=== PATIENT | male | born 1995 | race Hispanic/Latino ===

== ENCOUNTER → 2019-12-07 08:18 | Outpatient (CLI) | payer BC, SELFPAY ==
[2019-12-07 09:07] LABS: Influenza A - CEPHEID Flu A NEGATIVE (NEGATIVE); Influenza B - CEPHEID Flu B NEGATIVE (NEGATIVE)
== END ==
PROVIDERS: Visit Provider Physician Assistant
DX: R68.89 Other general symptoms and signs (principal)
CPT/HCPCS: 87502

== ENCOUNTER 2021-07-07 16:12 | Emergency (ER) | payer BC, OTHER, MEDICAID, SELFPAY ==
[2021-07-07 16:15] VITALS: BP 133/72; PULSE 70; RESP 16; TEMP 36.6; O2SAT 100
--- NOTE | 2021-07-07 16:22 | DI.RAD.S_ITS ---
PROCEDURE: XR LUMBAR SPINE 2-3V INDICATIONS: upper lumbar pain TECHNIQUE: 3 views of the lumbar spine were acquired. COMPARISON: None. FINDINGS: On the lateral view, overlying artifact can be seen. Bones: 5 [id number] vertebrae are present. There is normal bony alignment. No vertebral body compression fractures. No suspicious bony lesions. The disc heights are well preserved. Soft tissues: Overlying bowel gas pattern is normal. No suspicious soft tissue calcifications. IMPRESSION: Normal plain films. If it would be helpful for clinical management decision making, please consider a dedicated lumbar spine MRI for further evaluation (assuming that there is no contraindication). Dictated by: Wayne Potter M.D. on 07/07/2021 at 15:47 Approved by: Wayne Potter M.D. on 07/07/2021 at 15:48
--- NOTE | 2021-07-07 16:23 | ED_ITS ---
HPI - Back Pain/Injury <Artie Fagan PA-C - Last Filed: 07/07/21 19:50> General Chief Complaint: Back Pain/Injury Stated Complaint: Back Pain Time Seen by Provider: 07/07/21 16:15 Source: patient and EMS History of Present Illness HPI Narrative: Aaron presents today with chief complaint of lower back pain that started abruptly earlier today. Reports that he was working on some stairs for his kids and after completing it walked into the house. He had sudden onset of lower back pain that caused him to fall down to the floor. He had to drag himself over to the couch because of the pain. Reports that he has ?thrown back out? like this in the past and it typically self resolved after half an hour. For, this time his symptoms have not improved. Symptoms are made worse with any significant movement of his lower back. He reports that he is able to move his legs but states that that makes the pain worse. He has not taken anything to help alleviate his symptoms at this time. Related Data Previous Rx's Medication Instructions Recorded sertraline 50 mg tablet 25 mg PO DAILY #30 tab 04/24/21 Allergies Allergy/AdvReac Type Severity Reaction Status Date / Time No Known Drug Allergies Allergy Verified 07/07/21 16:23 Review of Systems <Artie Fagan PA-C - Last Filed: 07/07/21 19:50> Review of Systems Narrative: As per HPI Patient History <Artie Fagan PA-C - Last Filed: 07/07/21 19:50> Social History Smoking Status: Current some day smoker second hand exposure: No alcohol intake: current (32oz per week on average. ) substance use type: marijuana (occasionally) Smoking Status: Current some day smoker Substance Use Type: does not use Exam <Artie Fagan PA-C - Last Filed: 07/07/21 19:50> Narrative Exam Narrative: Exam Narrative: Const General: cooperative, healthy appearing, comfortable, no acute distress, well developed and well groomed Nutritional Appearance: average body habitus Orientation: alert and oriented x3 HENMT Head: normal to inspection and atraumatic Ears: hearing grossly normal bilaterally Nose: external nose normal and nares normal Face and sinus: normal facial exam Neck Neck: normal visual inspection and supple Resp Effort & Inspection: normal respiratory effort, able to speak in complete sentences, no audible wheezes, not labored, no nasal flaring and no respiratory distress Musculoskeletal He has midline upper lumbar tenderness noted. Surrounding paraspinal muscular tenderness bilaterally. No significant overlying skin abnormalities. Positive straight leg raise bilaterally. Neuro General: alert, oriented x3, tone normal and moves all extremities, lower extrem ities sensation is intact. Cognition: normal cognition Speech: speech normal Psych Appearance: grossly normal and well kempt Mental Status: mental status grossly normal Speech and Movement: speech and movement normal Mood: congruent mood Affect: normal affect Initial Vital Signs Initial Vital Signs: Vital Signs Temperature 97.9 F 07/07/21 16:15 Pulse Rate 70 07/07/21 16:15 Respiratory Rate 16 07/07/21 16:15 Blood Pressure 133/72 07/07/21 16:15 Pulse Oximetry 100 07/07/21 16:15 <Dayton Hassan MD - Last Filed: 07/18/21 07:25> Initial Vital Signs Initial Vital Signs: Vital Signs Temperature 97.9 F 07/07/21 16:15 Pulse Rate 70 07/07/21 16:15 Respiratory Rate 16 07/07/21 16:15 Blood Pressure 133/72 07/07/21 16:15 Pulse Oximetry 100 07/07/21 16:15 Course <Artie Fagan PA-C - Last Filed: 07/07/21 19:50> Orders Ordered: Discontinued Medications Hydrocodone Bitart/Acetaminophen (Hydrocodone/Acet 5/325 Tablet) 1 tab PO NOW ONE Stop: 07/07/21 17:05 Last Admin: 07/07/21 17:14 Dose: 1 tab Documented by: NEVA Ketorolac Tromethamine (Ketorolac 30 Mg/Ml Vial) 30 mg IM NOW ONE Stop: 07/07/21 16:24 Last Admin: 07/07/21 16:38 Dose: 30 mg Documented by: NEVA Vital Signs Vital signs: Vital Signs - 8 hr 07/07/21 16:15 07/07/21 17:17 Temperature 97.9 F Pulse Rate 70 65 Respiratory Rate 16 16 Blood Pressure 133/72 137/65 Pulse Oximetry 100 99 <Dayton Hassan MD - Last Filed: 07/18/21 07:25> Orders Ordered: Discontinued Medications Hydrocodone Bitart/Acetaminophen (Hydrocodone/Acet 5/325 Tablet) 1 tab PO NOW ONE Stop: 07/07/21 17:05 Last Admin: 07/07/21 17:14 Dose: 1 tab Documented by: NEVA Ketorolac Tromethamine (Ketorolac 30 Mg/Ml Vial) 30 mg IM NOW ONE Stop: 07/07/21 16:24 Last Admin: 07/07/21 16:38 Dose: 30 mg Documented by: NEVA Vital Signs Vital signs: Vital Signs - 8 hr 07/07/21 16:15 07/07/21 17:17 Temperature 97.9 F Pulse Rate 70 65 Respiratory Rate 16 16 Blood Pressure 133/72 137/65 Pulse Oximetry 100 99 MDM - Back Pain/Injury <Artie Fagan PA-C - Last Filed: 07/07/21 19:50> [facility] Narrative Medical decision making narrative: X-ray is grossly normal in the area that he has discomfort. There is no evidence of any infection at this time. Mechanism injury is suggestive musculoskeletal strain. Will treat for this at this time with strict ER return precautions if symptoms fail to improve as expected. Patient verbalizes understanding and agrees to plan and has no further concerns at this time. Thank you A [id number] system was used with the dictation of this note. Please disregard any spelling or grammatical errors. Discharge Plan Departure Patient Disposition: Home Clinical Impression: Strain of lumbar region Qualifiers: Encounter type: initial encounter Qualified Code(s): S39.012A - Strain of muscle, fascia and tendon of lower back, initial encounter Instructions: DI for Low Back Pain, DI for Back Spasm Activity Restrictions/Additional Instructions: It was very nice to meet you this evening. Please go home and apply warm compresses to your low back. Also recommend use of acetaminophen or ibuprofen as needed for pain management. I would expect your symptoms to last a few days but they should get gradually better. Light activity with exercise, warm compresses, stretching is lindsey to a good recovery. Return precautions include numbness or tingling in lower legs, changes in bowel or bladder habits, fever, headache or any other new or worsening complaints. Thank you Artie Fagan PA-C Prescriptions: No Action sertraline 50 mg tablet 25 mg PO DAILY Qty: 30 RF: 1 Referrals: Julian Hammer MD [Primary Care Provider] - Stand Alone Forms: Work Release Note
[2021-07-07] MEDS: KETOROLAC 30 MG/ML VIAL IM (16:38)
[2021-07-07] MEDS: HYDROCODONE/ACET 5/325 TABLET 1 TAB PO (17:14)
[2021-07-07 17:17] VITALS: BP 137/65; PULSE 65; RESP 16; O2SAT 99
== END 2021-07-07 17:49 | disposition home or self-care (01) ==
PROVIDERS: Emergency Provider Physician Assistant; PCP Student in an Organized Health Care Education/Training Program
DX: S39.012A Strain of muscle, fascia and tendon of lower back, initial encounter (principal); W19.XXXA Unspecified fall, initial encounter
CPT/HCPCS: 72100; 96372; 99283; 99284; J1885

== ENCOUNTER → 2021-11-13 11:37 | Outpatient (CLI) | payer BC, OTHER, MEDICAID, SELFPAY ==
[2021-11-13 13:56] LABS: COVID19 -Nasal RAPID POSITIVE (Negative)
== END ==
PROVIDERS: PCP Student in an Organized Health Care Education/Training Program; Referring Provider Nurse Practitioner Family; Visit Provider Nurse Practitioner Family
DX: R05.9 Cough, unspecified (principal); R09.81 Nasal congestion; R51.9 Headache, unspecified
CPT/HCPCS: 87635